=== PATIENT | male | born 1960 | race Two or more races ===

== ENCOUNTER 2019-01-17 13:30 | Inpatient (IN) | payer OTHER ==
[~2019-01-17] VITALS: Ht 165.1 cm; Wt 50.3 kg
[2019-01-17 14:38] LABS: EOSINOPHILS % 1.7 % (0.0-5.0); HEMATOCRIT. 21.3 % (42.0-52.0); HEMOGLOBIN. 7.3 g/dL (14.0-18.0); LYMPHOCYTES % 14.7 % (20.0-50.0); MEAN CORPUSCULAR HEMOGLOBIN 33.7 pg (28.0-32.0); MEAN CORPUSCULAR VOLUME 98.4 fL (80.0-94.0); MEAN PLATELET VOLUME 7.2 fl (7.4-10.4); MONOCYTES % 11.6 % (2.0-8.0); PLATELET 274 x1000/uL (130-400); RED BLOOD CELL COUNT 2.17 mill/uL (4.7-6.1); RED CELL DISTRIBUTION WIDTH 17.3 % (11.6-14.6)
[2019-01-17 14:46] LABS: INR 1.1; PROTHROMBIN TIME 10.8 sec (9.6-11.0)
[2019-01-17] MEDS ORDERED: ONDANSETRON HCL 4MG/2ML INJ IV PRN (15:30)
[2019-01-17] MEDS ORDERED: HYDROMORPHONE HCL/PF 2MG/ML CPJ IV PRN (15:30)
[2019-01-17] MEDS ORDERED: ACETAMINOPHEN 325MG TABLET PO PRN (15:30)
[2019-01-17] MEDS ORDERED: CLONIDINE 0.1MG TABLET PO PRN (15:30)
[2019-01-17 16:12] LABS: CREATINE KINASE 102 IU/L (39-308)
[2019-01-17] MEDS: SODIUM CHLORIDE 0.45% 1,000 ML IV SCH (17:26)
[2019-01-17 22:35] LABS: CLARITY URINE CLEAR (CLEAR); COLOR URINE YELLOW (YELLOW); KETONES URINE NEGATIVE (NEGATIVE); LEUKOCYTE ESTERASE URINE NEGATIVE (NEGATIVE); NITRITE URINE NEGATIVE (NEGATIVE); OCCULT BLOOD URINE NEGATIVE (NEGATIVE); PROTEIN URINE NEGATIVE (NEGATIVE); SPECIFIC GRAVITY URINE 1.006 (1.005-1.030); UROBILINOGEN URINE 0.2 E.U./dL (0.2-1.0)
[2019-01-17 22:50] LABS: *AMPHETAMINES SCREEN URINE NEGATIVE (NEGATIVE); *BARBITURATES SCREEN URINE NEGATIVE (NEGATIVE); *BENZODIAZEPINES SCREEN URINE NEGATIVE (NEGATIVE); *COCAINE SCREEN URINE NEGATIVE (NEGATIVE); CANNABINOID URINE SCREEN NEGATIVE (NEGATIVE); METHADONE URINE SCREEN NEGATIVE (NEGATIVE); OPIATES URINE SCREEN NEGATIVE (NEGATIVE)
[2019-01-17 22:51] LABS: PHENCYCLIDINE URINE SCREEN NEGATIVE (NEGATIVE)
[2019-01-18] VITALS (10 sets, daily range): BP systolic 92–118; BP diastolic 44–71
[2019-01-18] MEDS: SODIUM CHLORIDE 0.45% 1,000 ML IV SCH ×3 (01:25→13:39)
[2019-01-18 05:48] LABS: BASOPHILS % 1.3 % (0.0-2.0); EOSINOPHILS % 2.5 % (0.0-5.0); LYMPHOCYTES % 14.8 % (20.0-50.0); MEAN CORPUSCULAR HEMOGLOBIN 34.2 pg (28.0-32.0); MEAN CORPUSCULAR VOLUME 97.7 fL (80.0-94.0); MONOCYTES % 13.7 % (2.0-8.0); NEUTROPHILS % 67.7 % (40.0-76.0); PLATELET 257 x1000/uL (130-400); RED BLOOD CELL COUNT 2.03 mill/uL (4.7-6.1); RED CELL DISTRIBUTION WIDTH 17.1 % (11.6-14.6)
[2019-01-18 05:52] LABS: CHLORIDE 113 mEq/L (98-107)
[2019-01-18 05:59] LABS: PHOSPHORUS 5.8 mg/dL (2.5-4.9)
[2019-01-18 06:02] LABS: HDL CHOLESTEROL 54 mg/dL (40-59); LDL CHOLESTEROL 217 mg/dL (5-100); TOTAL IRON BINDING CAPACITY 218 ug/dL (250-450)
[2019-01-18 06:17] LABS: HEPATITIS B SURFACE ANTIGEN NEGATIVE
[2019-01-18 06:47] LABS: HEMATOCRIT. 19.8 % (42.0-52.0); HEMOGLOBIN. 6.9 g/dL (14.0-18.0)
[2019-01-18] MEDS ORDERED: SODIUM POLYSTYRENE SULFONATE 15 G/60 ML BOT PO SCH (09:00)
[2019-01-18] MEDS ORDERED: MAGNESIUM 2 G PREMIX 50 ML IV NR (12:00)
[2019-01-18] MEDS ORDERED: THROAT LOZENGES-BENZOCAINE/MENTH/CETYLPYRD CL LOZENGES MM PRN (12:45)
[2019-01-18] MEDS: OMEPRAZOLE 20MG CAPSULE EXTENDED RELEASE PO SCH ×2 (13:35→20:14)
[2019-01-18 15:22] LABS: HEMATOCRIT 24.7 % (42.0-52.0); HEMOGLOBIN 8.5 g/dL (14.0-18.0); MEAN CORPUSCULAR HEMOGLOBIN 32.8 pg (28.0-32.0); MEAN CORPUSCULAR VOLUME 95.3 fL (80.0-94.0); PLATELET 233 x1000/uL (130-400); RED BLOOD CELL COUNT 2.59 mill/uL (4.7-6.1); RED CELL DISTRIBUTION WIDTH 17.4 % (11.6-14.6)
[2019-01-19] VITALS: BP 108/58
[2019-01-19] MEDS: SODIUM CHLORIDE 0.45% 1,000 ML IV SCH ×3 (00:52→07:51)
[2019-01-19 04:00] VITALS: BP 109/53
[2019-01-19 06:31] LABS: HEMATOCRIT. 23.7 % (42.0-52.0); HEMOGLOBIN. 8.3 g/dL (14.0-18.0); MEAN CORPUSCULAR HEMOGLOBIN 33.3 pg (28.0-32.0); MEAN CORPUSCULAR VOLUME 94.7 fL (80.0-94.0); MEAN PLATELET VOLUME 8.1 fl (7.4-10.4); PLATELET 230 x1000/uL (130-400)
[2019-01-19] MEDS: OMEPRAZOLE 20MG CAPSULE EXTENDED RELEASE PO SCH (06:32)
[2019-01-19 06:59] LABS: PHOSPHORUS 5.4 mg/dL (2.5-4.9)
[2019-01-19 08:00] VITALS: BP 102/57
[2019-01-19 09:53] LABS: PLATELET ESTIMATE NORMAL
[2019-01-19 10:07] VITALS: BP 102/57
== END 2019-01-19 10:50 | disposition home or self-care (01) | DRG 811 ==
LOC: ER 13:30 → EDBEDREQSVC 14:35 → 8WST 15:06 → EDBEDREQ 15:23 → SUPCPDRO 16:45 → ENRESERV 20:14
PROVIDERS: ADMIT Internal Medicine Nephrology; ATTEND Internal Medicine Nephrology
PROC: 30233N1 Transfusion of Nonautologous Red Blood Cells into Peripheral Vein, Percutaneous Approach (ICD-10-PCS; principal; 2019-01-18)
DX: D50.9 Iron deficiency anemia, unspecified (principal); N17.0 Acute kidney failure with tubular necrosis; E46 Unspecified protein-calorie malnutrition; Z68.1 Body mass index [BMI] 19.9 or less, adult; D32.9 Benign neoplasm of meninges, unspecified; E87.5 Hyperkalemia; E87.8 Other disorders of electrolyte and fluid balance, not elsewhere classified; F17.200 Nicotine dependence, unspecified, uncomplicated; H91.91 Unspecified hearing loss, right ear; K57.90 Diverticulosis of intestine, part unspecified, without perforation or abscess without bleeding; Z85.89 Personal history of malignant neoplasm of other organs and systems; Z92.3 Personal history of irradiation; C11.9 Malignant neoplasm of nasopharynx, unspecified; Y84.2 Radiological procedure and radiotherapy as the cause of abnormal reaction of the patient, or of later complication, without mention of misadventure at the time of the procedure
CPT/HCPCS: 36415; 74176; 76770; 80048; 80061; 80305; 82270; 82550; 83540; 83550; 83735; 84100; 84484; 85027; 86803; 86850; 86900; 86920; 87340; 92610; 93005; 93306; 93970; 99291; J3475; J7050; P9016